=== PATIENT | female | born 1995 | race Caucasian/White ===

== ENCOUNTER 2016-05-09 12:02 | Emergency (ER) | payer BC, OTHER ==
[~2016-05-09] VITALS: Ht 170.2 cm; Wt 68.5 kg
[~2016-05-09 12:02] MED LIST: Z.0.BCPILL PO
[2016-05-09 12:37] VITALS: BP 137/87; PULSE 81; RESP 16; TEMP 98.8; O2SAT 97
[2016-05-09] MEDS ORDERED: HYDR-3133 PO ×2 (12:50→13:16)
[2016-05-09] MEDS ORDERED: Birth control PO (12:50)
--- NOTE | 2016-05-09 13:06 | PD ---
HPI Chief Complaint: Anxiety Time Seen by Provider: 12:54 Travel History International Travel<30 days: No Contact w/Intl Traveler<30days: No Traveled to known affect area: No History of Present Illness HPI The patient was seen and examined in the presence of the nurse. Complains of anxiety. This is a long-standing problem she has. Takes no medication for it. Denies feeling depressed or suicidal. Denies drug use. Symptom severity is moderate. PFSH Past Medical History Medical History: Denies Significant Hx Diminished Hearing: No Immunizations Current: Yes (UTD) Tetanus Vaccination: > 5 Years Influenza Vaccination: Yes ?: Not LMP: 2-3 months, normally irr., on BCP Past Surgical History Surgical History: No Previous Surgery Social History Alcohol Use: Yes (Occ.) Tobacco Use: Yes (Vapes) Substance Use: No Allergies-Medications (Allergen,Severity, Reaction): Coded Allergies: No Known Allergies (Verified , 05/09/16) Reported Meds & Prescriptions Reported Meds & Active Scripts Active Reported [ control] 1 Tab PO DAILY Hydroxyzine HCl 25 Mg Tab 25 Mg PO TID PRN Review of Systems General / Constitutional: No: Fever HENT: No: Headaches Cardiovascular: No: Chest Pain or Discomfort Physical Exam Narrative CARDIOVASCULAR: Regular rate and rhythm without murmur. Extremities showed no edema or varicosities. RESPIRATORY: Respiratory effort unlabored, no retractions or use of accessory muscles. Breath sounds are clear and symmetric. SKIN: Inspection shows no rash or ulcers. Palpation shows no induration or nodules. Data Data Last Documented VS Vital Signs Date Time Temp Pulse Resp B/P Pulse Ox O2 Delivery O2 Flow Rate FiO2 05/09/16 12:37 98.8 81 16 137/87 97 Orders Hydroxyzine Pamoate (Vistaril) (05/09/16 13:15) [facility] Medical Decision Making Medical Screen Exam Complete: Yes Emergency Medical Condition: Yes Medical Record Reviewed: Yes Differential Diagnosis Anxiety, depression, adjustment disorder Narrative Course I have reviewed the patient's electronic medical record. Patient is anxiety but is young healthy 20-year-old without physical complaint otherwise I gave her a dose of Vistaril and a prescription for same Primary care physician follow-up recommended Diagnosis Primary Impression: Anxiety attack Additional Instructions: The patient was advised to follow up with their physician and return if they worsen. The patient was warned about potential sedation for the medications they will receive on prescription. Med/Other Pt SpecificInfo: Prescription(s) given Disposition: 01 DISCHARGE HOME Condition: Stable Jose Enrique Tomas MD May 09, 2016 13:06
[2016-05-09] MEDS ORDERED: hydrOXYzine PAMOATE 25 MG CAP PO ONE (13:15)
== END 2016-05-09 13:20 | disposition home or self-care (01) ==
LOC: PHED 12:02
DX: F41.8 Other specified anxiety disorders (principal); Z72.0 Tobacco use
CPT/HCPCS: 99283; Q0177

== ENCOUNTER 2016-11-18 18:28 | Emergency (ER) | payer BC, OTHER ==
[~2016-11-18] VITALS: Ht 172.7 cm; Wt 62.0 kg
[~2016-11-18 18:28] MED LIST changes: +Birth control PO; +HYDR-3133 PO; -Z.0.BCPILL PO
[2016-11-18 18:57] VITALS: BP 123/69; PULSE 70; RESP 18; TEMP 98.9; O2SAT 100
[2016-11-18 19:50] LABS: AUTOMATED NEUTROPHIL # 9.8 TH/MM3 (1.8-7.7); BASOPHIL % 0.3 % (0.0-2.0); EOSINOPHIL # 0.2 TH/MM3 (0-0.4); EOSINOPHIL % 1.5 % (0.0-4.0); HEMATOCRIT 43.2 % (35.0-46.0); HEMO FLAGS DIFF FINAL; LYMPH % 18.2 % (9.0-44.0); LYMPHOCYTE # 2.4 TH/MM3 (1.0-4.8); MEAN CELL VOLUME 89.2 FL (80.0-100.0); MEAN CORPUSCULAR HGB CONC 32.5 % (32.0-36.0); MONO % 6.4 % (0.0-8.0); NEUT % 73.6 % (16.0-70.0); PLATELET COUNT 236 TH/MM3 (150-450); RED BLOOD COUNT 4.84 MIL/MM3 (4.00-5.30); RED CELL DISTRIBUTION WIDTH 13.1 % (11.6-17.2); WHITE BLOOD COUNT 13.3 TH/MM3 (4.0-11.0)
[2016-11-18 20:08] LABS: ALT (GPT) 25 U/L (10-53); ANION GAP 8 MEQ/L (5-15); AST (GOT) 14 U/L (15-37); BICARBONATE 24.6 MEQ/L (21.0-32.0); BLOOD UREA NITROGEN 11 MG/DL (7-18); CHLORIDE 106 MEQ/L (98-107); GLOMERULAR FILTRATION RATE 102 ML/MIN (>89); POTASSIUM 3.8 MEQ/L (3.5-5.1); SODIUM (NA) 139 MEQ/L (136-145)
[2016-11-18 20:11] LABS: ALKALINE PHOSPHATASE 79 U/L (45-117)
[2016-11-18 20:19] LABS: ALCOHOL LESS THAN 3 MG/DL (0-5)
--- NOTE | 2016-11-18 21:23 | PD ---
HPI Chief Complaint: Psychiatric Symptoms Time Seen by Provider: 20:13 Travel History International Travel<30 days: No Contact w/Intl Traveler<30days: No Traveled to known affect area: No History of Present Illness HPI 20-year-old female that presents to the ED for evaluation of psychiatric illness. Patient was Alex lino. She made suicidal statements to her boss at work. She states that she is given IV laid-off and asked what she may be statements. She has history of anxiety. She takes Xanax for this. She denies any other medical issues. She denies any cutting. Denies any actual plan at this time. States doing marijuana on occasion. PFSH Past Medical History Anxiety: Yes Depression: Yes Diminished Hearing: No Immunizations Current: Yes (UTD) ?: Not LMP: 10/16/16 Past Surgical History Surgical History: No Previous Surgery Social History Alcohol Use: Yes (Occ.) Tobacco Use: Yes (Vapes) Substance Use: Yes (e-cig) Allergies-Medications (Allergen,Severity, Reaction): Coded Allergies: No Known Allergies (Verified , 05/09/16) Reported Meds & Prescriptions Reported Meds & Active Scripts Active Hydroxyzine HCl 25 Mg Tab 25 Mg PO TID PRN Reported [ control] 1 Tab PO DAILY Review of Systems Except as stated in HPI: all other systems reviewed are Neg Physical Exam Narrative GENERAL: SKIN: Warm and dry. HEAD: Atraumatic. Normocephalic. EYES: Pupils equal and round. No scleral icterus. No injection or drainage. ENT: No nasal bleeding or discharge. Mucous membranes pink and moist. Tongue is midline. No uvula deviation. NECK: Trachea midline. No JVD. CARDIOVASCULAR: Regular rate and rhythm. No murmurs, S3, S4. RESPIRATORY: No accessory muscle use. Clear to auscultation. Breath sounds equal bilaterally. GASTROINTESTINAL: Abdomen soft, non-tender, nondistended. Hepatic and splenic margins not palpable. MUSCULOSKELETAL: Extremities without clubbing, cyanosis, or edema. No obvious deformities. Full range of motion of the upper and lower extremities bilaterally. 2+ pulses bilaterally. NEUROLOGICAL: Awake and alert. No obvious cranial nerve deficits. Motor grossly within normal limits. Five out of 5 muscle strength in the arms and legs. Normal speech. PSYCHIATRIC: Anxious mood and affect; insight and judgment normal. Data Data Last Documented VS Vital Signs Date Time Temp Pulse Resp B/P (MAP) Pulse Ox O2 Delivery O2 Flow Rate FiO2 11/18/16 18:57 98.9 70 18 123/69 (87) 100 Orders Orders Complete Blood Count With Diff (11/18/16 19:21) Comprehensive Metabolic Panel (11/18/16 19:21) Psych Screen (11/18/16 19:21) Drug Screen, Random Urine (11/18/16 19:21) Alcohol (Ethanol) (11/18/16 19:21) Labs Laboratory Tests Test 11/18/16 19:23 11/18/16 19:35 Urine Opiates Screen NEG Urine Barbiturates Screen NEG Urine Amphetamines Screen NEG Urine Benzodiazepines Screen POS Urine Cocaine Screen NEG Urine Cannabinoids Screen POS White Blood Count 13.3 TH/MM3 Red Blood Count 4.84 MIL/MM3 Hemoglobin 14.0 GM/DL Hematocrit 43.2 % Mean Corpuscular Volume 89.2 FL Mean Corpuscular Hemoglobin 29.0 PG Mean Corpuscular Hemoglobin Concent 32.5 % Red Cell Distribution Width 13.1 % Platelet Count 236 TH/MM3 Mean Platelet Volume 9.7 FL Neutrophils (%) (Auto) 73.6 % Lymphocytes (%) (Auto) 18.2 % Monocytes (%) (Auto) 6.4 % Eosinophils (%) (Auto) 1.5 % Basophils (%) (Auto) 0.3 % Neutrophils # (Auto) 9.8 TH/MM3 Lymphocytes # (Auto) 2.4 TH/MM3 Monocytes # (Auto) 0.8 TH/MM3 Eosinophils # (Auto) 0.2 TH/MM3 Basophils # (Auto) 0.0 TH/MM3 CBC Comment DIFF FINAL Differential Comment Blood Urea Nitrogen 11 MG/DL Creatinine 0.72 MG/DL Random Glucose 77 MG/DL Total Protein 7.9 GM/DL Albumin 4.3 GM/DL Calcium Level 8.5 MG/DL Alkaline Phosphatase 79 U/L Aspartate Amino Transf (AST/SGOT) 14 U/L Alanine Aminotransferase (ALT/SGPT) 25 U/L Total Bilirubin 1.0 MG/DL Sodium Level 139 MEQ/L Potassium Level 3.8 MEQ/L Chloride Level 106 MEQ/L Carbon Dioxide Level 24.6 MEQ/L Anion Gap 8 MEQ/L Estimat Glomerular Filtration Rate 102 ML/MIN Ethyl Alcohol Level LESS THAN 3 MG/DL MDM Medical Decision Making Medical Screen Exam Complete: Yes Emergency Medical Condition: Yes Medical Record Reviewed: Yes Interpretation(s) CBC & BMP Diagram 11/18/16 19:35 Total Protein 7.9, Albumin 4.3, Calcium Level 8.5, Alkaline Phosphatase 79, Aspartate Amino Transf (AST/SGOT) 14 L, Alanine Aminotransferase (ALT/SGPT) 25, Total Bilirubin 1.0 tox positive for benzos and cannabinoids Differential Diagnosis Depression versus suicidal ideation versus anxiety versus adjustment disorder versus mood disorder versus bipolar disorder versus schizophrenia versus paranoid disorder versus psychosis versus substance abuse versus alcohol abuse versus alcohol induced psychosis versus homicidality addition versus cutting versus personality disorder Narrative Course 20-year-old female that presents to the ED for emergent psychiatric illness. No sign of acute medical distress. Labs were drawn. Patient was medically clear. Okay to be seen by psych. Mental health screening was discussed with the patient. Diagnosis Primary Impression: Suicidal ideation Stas Anand Nov 18, 2016 21:23
[2016-11-18 23:15] VITALS: BP 116/63; PULSE 70; RESP 18
[2016-11-19 06:47] VITALS: BP 104/63; PULSE 74; RESP 18; O2SAT 98
[2016-11-19] MEDS ORDERED: IBUPROFEN 800 MG TAB PO ONE (08:30)
[2016-11-19 15:35] VITALS: BP 125/72
== END 2016-11-19 15:50 | disposition home or self-care (01) ==
LOC: NEPJ 18:28
DX: R45.851 Suicidal ideations (principal); F41.9 Anxiety disorder, unspecified; F32.9 Major depressive disorder, single episode, unspecified; F17.290 Nicotine dependence, other tobacco product, uncomplicated; Z79.899 Other long term (current) drug therapy
CPT/HCPCS: 80053; 80307; 85025; 99283

== ENCOUNTER 2017-03-14 17:05 | Emergency (ER) | payer BC, OTHER ==
[~2017-03-14] VITALS: Ht 172.7 cm; Wt 59.7 kg
[2017-03-14 17:14] VITALS: BP 118/57; PULSE 66; RESP 16; TEMP 98.5; O2SAT 99
[2017-03-14] MEDS ORDERED: TYLETAB34 PO (18:48)
[2017-03-14] MEDS ORDERED: SODIUM CHLOR 0.9% 1000 ML INJ 1,000 ML IV ONE (19:30)
[2017-03-14] MEDS ORDERED: SODIUM CHLORIDE 0.9% FLUSH 10 ML FLUSH IVF PRN (19:30)
[2017-03-14] MEDS ORDERED: ONDANSETRON HCL 4 MG/2 ML VIAL IV PUSH ONE (19:30)
--- NOTE | 2017-03-14 20:04 | PD ---
HPI Chief Complaint: GI Complaint Time Seen by Provider: 19:18 Travel History International Travel<30 days: No Contact w/Intl Traveler<30days: No Traveled to known affect area: No History of Present Illness HPI 21-year-old female presents to the emergency department for a week to week and a half of upper respiratory infection symptoms with sinus pressure drainage and yellow-green mucus production. Patient states she has subsequently developed a sore throat and has had chills without fever. She has had episodes of vomiting and diarrhea but denies any abdominal pain. Patient denies dysuria but has noted decreased urine output. Due to persistence of symptoms and exposure to respiratory illness by calling at work decided to come to the emergency room for evaluation. Patient did not have the flu vaccine for this season. Patient reports she is otherwise in good health except for history of anxiety and palpitations. Patient is currently not on any prescription or [id number] medications at this time. PFSH Past Medical History Anxiety: Yes Depression: Yes Diabetes: No Patient Takes Glucophage: No Diminished Hearing: No Immunizations Current: Yes (UTD) Tetanus Vaccination: Unknown ?: Not Past Surgical History Oral Surgery: Yes (WISDOM TEETH) Social History Alcohol Use: Yes (Occ.) Tobacco Use: Yes (Vapes) Substance Use: Yes (Snus, tobacco pouch) Allergies-Medications (Allergen,Severity, Reaction): Coded Allergies: No Known Allergies (Verified Adverse Reaction, Unknown, 03/14/17) Reported Meds & Prescriptions Reported Meds & Active Scripts Active Zofran Odt (Ondansetron Odt) 4 Mg Tab 4 Mg SL Q6HR PRN Amoxicillin 500 Mg Tab 500 Mg PO TID 10 Days Reported Tylenol-Codeine #3 (Acetaminophen-Codeine) 300-30 mg Tab 1 Tab PO Q8HR PRN Review of Systems Except as stated in HPI: all other systems reviewed are Neg Physical Exam Narrative GENERAL: Well-developed well-nourished female in no acute distress no respiratory distress SKIN: Warm and dry. HEAD: Normocephalic. EYES: No scleral icterus. No injection or drainage. ENT: Mucous membranes moist airway is patent posterior pharynx erythema without exudate of change or edema. NECK: Supple, trachea midline. No JVD or lymphadenopathy. Anterior cervical chain lymph nodes to palpation mildly tender CARDIOVASCULAR: Regular rate and rhythm without murmurs, gallops, or rubs. RESPIRATORY: Breath sounds equal bilaterally. No accessory muscle use. GASTROINTESTINAL: Abdomen soft, non-tender, nondistended. Abdomen is soft nontender no guarding or rebound. MUSCULOSKELETAL: No cyanosis, or edema. BACK: Nontender without obvious deformity. No CVA tenderness. Data Data Last Documented VS Vital Signs Date Time Temp Pulse Resp B/P (MAP) Pulse Ox O2 Delivery O2 Flow Rate FiO2 03/14/17 20:19 97 Room Air 03/14/17 17:14 98.5 66 16 118/57 (77) Orders Orders Complete Blood Count With Diff (03/14/17 19:18) Basic Metabolic Panel (Bmp) (03/14/17 19:18) Group A Rapid Strep Screen (03/14/17 19:18) Influenzae A/B Antigen (03/14/17 19:18) Iv Access Insert/Monitor (03/14/17 19:18) Oximetry (03/14/17 19:18) Sodium Chloride 0.9% Flush (Ns Flush) (03/14/17 19:30) Sodium Chlor 0.9% 1000 Ml Inj (Ns 1000 M (03/14/17 19:30) Ondansetron Inj (Zofran Inj) (03/14/17 19:30) Ed Urine Pregnancytest Poc (03/14/17 19:18) Strep Culture (Group A) (03/14/17 20:16) Ed Discharge Order (03/14/17 21:18) Labs Laboratory Tests Test 03/14/17 20:08 White Blood Count 9.6 TH/MM3 Red Blood Count 4.84 MIL/MM3 Hemoglobin 13.9 GM/DL Hematocrit 44.1 % Mean Corpuscular Volume 91.1 FL Mean Corpuscular Hemoglobin 28.7 PG Mean Corpuscular Hemoglobin Concent 31.5 % Red Cell Distribution Width 13.0 % Platelet Count 209 TH/MM3 Mean Platelet Volume 10.7 FL Neutrophils (%) (Auto) 62.8 % Lymphocytes (%) (Auto) 20.2 % Monocytes (%) (Auto) 8.3 % Eosinophils (%) (Auto) 6.8 % Basophils (%) (Auto) 1.9 % Neutrophils # (Auto) 6.0 TH/MM3 Lymphocytes # (Auto) 1.9 TH/MM3 Monocytes # (Auto) 0.8 TH/MM3 Eosinophils # (Auto) 0.7 TH/MM3 Basophils # (Auto) 0.2 TH/MM3 CBC Comment DIFF FINAL Differential Comment Blood Urea Nitrogen 8 MG/DL Creatinine 0.80 MG/DL Random Glucose 76 MG/DL Calcium Level 9.3 MG/DL Sodium Level 141 MEQ/L Potassium Level 3.7 MEQ/L Chloride Level 105 MEQ/L Carbon Dioxide Level 28.7 MEQ/L Anion Gap 7 MEQ/L Estimat Glomerular Filtration Rate 90 ML/MIN MDM Medical Decision Making Medical Screen Exam Complete: Yes Emergency Medical Condition: Yes Medical Record Reviewed: Yes Interpretation(s) POC hCG: Negative CBC & BMP Diagram 03/14/17 20:08 Calcium Level 9.3 Vital Signs Date Time Temp Pulse Resp B/P (MAP) Pulse Ox O2 Delivery O2 Flow Rate FiO2 03/14/17 20:19 97 Room Air 03/14/17 17:14 98.5 66 16 118/57 (77) 99 Influenza antigen: Negative Rapid strep antigen: Negative Differential Diagnosis Sinusitis, viral syndrome, pharyngitis, bronchitis, pneumonia, , UTI, gastroenteritis Narrative Course Patient presents with complaint of vomiting and diarrhea with decreased urine output dehydration sore throat sinus pressure drainage Specimens collected and sent for resulting patient administered 1 L normal saline and Zofran 4 mg IV for complaint of nausea Lab values 100 grossly normal range [id number] hCG negative influenza antigen negative and rapid strep negative patient is clinically improved and stable for outpatient management [place] patient given prescription for amoxicillin for sinusitis and Zofran 4 nausea vomiting and gastroenteritis symptoms Diagnosis Primary Impression: Acute sinusitis Additional Impression: Gastroenteritis Referrals: Primary Care Physician call for appointment Patient Instructions: General Instructions Departure Forms: Tests/Procedures, Work Release Special Instructions: No work times one day Additional Instructions: Increase fluid hydration Take medications as prescribed No work times one day Take acetaminophen/Tylenol every 4 hours as needed for fever 100.4 days Fahrenheit or greater Take ibuprofen/Advil/Motrin every 6-8 hours as needed for fever 100.4F or greater or for pain associated inflammation Return to the emergency department for any concerns or change in condition Med/Other Pt SpecificInfo: Prescription(s) given Scripts Ondansetron Odt (Zofran Odt) 4 Mg Tab 4 MG SL Q6HR Y for Nausea/Vomiting, #10 TAB 0 Refills Prov: Jannie Huynh MD 03/14/17 Amoxicillin (Amoxicillin) 500 Mg Tab 500 MG PO TID for Infection for 10 Days, TAB 0 Refills Prov: Jannie Huynh MD 03/14/17 Disposition: 01 DISCHARGE HOME Condition: Stable Jannie Huynh MD Mar 14, 2017 20:04
[2017-03-14 20:19] VITALS: O2SAT 97
[2017-03-14 20:26] LABS: BASOPHIL # 0.2 TH/MM3 (0-0.2); BASOPHIL % 1.9 % (0.0-2.0); EOSINOPHIL # 0.7 TH/MM3 (0-0.4); EOSINOPHIL % 6.8 % (0.0-4.0); HEMATOCRIT 44.1 % (35.0-46.0); HEMOGLOBIN 13.9 GM/DL (11.6-15.3); LYMPH % 20.2 % (9.0-44.0); LYMPHOCYTE # 1.9 TH/MM3 (1.0-4.8); MEAN CELL VOLUME 91.1 FL (80.0-100.0); MEAN CORPUSCULAR HEMOGLOBIN 28.7 PG (27.0-34.0); MEAN CORPUSCULAR HGB CONC 31.5 % (32.0-36.0); MEAN PLATELET VOLUME 10.7 FL (7.0-11.0); MONO % 8.3 % (0.0-8.0); MONOCYTE # 0.8 TH/MM3 (0-0.9); NEUT % 62.8 % (16.0-70.0); PLATELET COUNT 209 TH/MM3 (150-450); RED BLOOD COUNT 4.84 MIL/MM3 (4.00-5.30); WHITE BLOOD COUNT 9.6 TH/MM3 (4.0-11.0)
[2017-03-14 20:51] LABS: CALCIUM 9.3 MG/DL (8.5-10.1)
[2017-03-14 20:52] LABS: BICARBONATE 28.7 MEQ/L (21.0-32.0)
[2017-03-14 20:55] LABS: CREATININE 0.8 MG/DL (0.50-1.00)
[2017-03-14] MEDS ORDERED: ZOFR4TAB3 SL (21:20)
[2017-03-14] MEDS ORDERED: AMOX500T PO (21:20)
[2017-03-14 21:57] VITALS: BP 103/60
== END 2017-03-14 21:59 | disposition home or self-care (01) ==
LOC: PHED 17:05
DX: J01.90 Acute sinusitis, unspecified (principal); K52.9 Noninfective gastroenteritis and colitis, unspecified; Z72.0 Tobacco use
CPT/HCPCS: 80048; 84703; 85025; 87081; 87804; 87880; 96361; 96374; 99284; J2405; J7030

== ENCOUNTER 2017-06-28 13:23 | Emergency (ER) | payer BC ==
[~2017-06-28] VITALS: Ht 172.7 cm; Wt 120.0 kg
[~2017-06-28 13:23] MED LIST changes: +AMOX500T PO; -Birth control PO; -HYDR-3133 PO; +TYLETAB34 PO; +ZOFR4TAB3 SL
[2017-06-28 13:32] VITALS: BP 133/71; PULSE 71; RESP 16; TEMP 98.5; O2SAT 98
--- NOTE | 2017-06-28 13:40 | PD ---
HPI Chief Complaint: Syncope/Near-Syncope Time Seen by Provider: 13:40 Travel History International Travel<30 days: No Contact w/Intl Traveler<30days: No Traveled to known affect area: No History of Present Illness HPI 21-year-old female came to the emergency room with history of a syncopal episode today at work. 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 She slid against the wall and the coworkers helped her lay down. Patient says that she has been sick for past 4 months. She has been in the emergency room as well as to see her primary care doctor. She has been having vomiting and unable to eat or drink much. She has lost 40 pounds since last February. She has had multiple workup in the emergency room as well as by her primary care. She has not been referred to any GI specialist. Her primary care has diagnosed her with asthma. Today she had no respiratory issues and vital signs were stable. [facility] Past Medical History Narrative Medical List of her past medical, surgical, social and family history is reviewed from the nursing note. Anxiety: Yes Depression: Yes Diabetes: No Diminished Hearing: No Immunizations Current: Yes (UTD) Past Surgical History Oral Surgery: Yes (WISDOM TEETH) Social History Alcohol Use: Yes (Occ.) Tobacco Use: Yes (Vapes) Substance Use: Yes (Snus, tobacco pouch) Allergies-Medications (Allergen,Severity, Reaction): Coded Allergies: No Known Allergies (Verified Adverse Reaction, Unknown, 06/28/17) Comments No known drug allergies Reported Meds & Prescriptions Reported Meds & Active Scripts Active Zofran Odt (Ondansetron Odt) 4 Mg Tab 4 Mg SL Q6HR PRN Reported Ventolin Hfa 18 GM Inh (Albuterol Sulfate) 90 Mcg/Act Aer 2 Puff INH Q4H PRN Proair Hfa 8.5 GM Inh (Albuterol Sulfate) 90 Mcg/Act Aer 2 Puff INH Q4-6H PRN 108 mcg/actuation Narrative Medication List of her home medications reviewed from the nursing note. Review of Systems Except as stated in HPI: all other systems reviewed are Neg General / Constitutional: Positive: Weight Loss Gastrointestinal: Positive: Nausea, Vomiting Neurologic: Positive: Syncope Physical Exam Narrative GENERAL: Awake, alert, mildest SKIN: Focused skin assessment warm/dry. Pale. Bruising on her bilateral lower extremity HEAD: Atraumatic. Normocephalic. EYES: Pupils equal and round. No scleral icterus. No injection or drainage. ENT: No nasal bleeding or discharge. Mucous membranes pink and moist. NECK: Trachea midline. No JVD. CARDIOVASCULAR: Regular rate and rhythm. No murmur appreciated. RESPIRATORY: No accessory muscle use. Clear to auscultation. Breath sounds equal bilaterally. GASTROINTESTINAL: Abdomen soft, non-tender, nondistended. Hepatic and splenic margins not palpable. MUSCULOSKELETAL: No obvious deformities. No clubbing. No cyanosis. No edema. NEUROLOGICAL: Awake and alert. No obvious cranial nerve deficits. Motor grossly within normal limits. Normal speech. PSYCHIATRIC: Appropriate mood and affect; insight and judgment normal. Data Data Last Documented VS Vital Signs Date Time Temp Pulse Resp B/P (MAP) Pulse Ox O2 Delivery O2 Flow Rate FiO2 06/28/17 17:27 06/28/17 15:44 53 20 75 20 69 20 06/28/17 13:51 98 Room Air 06/28/17 13:32 98.5 Orders Orders Complete Blood Count With Diff (06/28/17 14:13) Comprehensive Metabolic Panel (06/28/17 14:13) Urinalysis - C+S If Indicated (06/28/17 14:13) Us Abdomen Gallbladder (06/28/17 ) Potassium Chloride (Kcl) (06/28/17 15:30) Orthostatic Vital Signs (06/28/17 15:26) Ed Discharge Order (06/28/17 17:15) Mandatory Outpatient Referral (06/28/17 17:26) Electrocardiogram (06/28/17 17:11) Labs Laboratory Tests Test 06/28/17 14:50 White Blood Count 9.2 TH/MM3 Red Blood Count 4.48 MIL/MM3 Hemoglobin 13.5 GM/DL Hematocrit 40.2 % Mean Corpuscular Volume 89.7 FL Mean Corpuscular Hemoglobin 30.1 PG Mean Corpuscular Hemoglobin Concent 33.5 % Red Cell Distribution Width 12.1 % Platelet Count 234 TH/MM3 Mean Platelet Volume 10.4 FL Neutrophils (%) (Auto) 77.0 % Lymphocytes (%) (Auto) 16.8 % Monocytes (%) (Auto) 3.6 % Eosinophils (%) (Auto) 0.3 % Basophils (%) (Auto) 2.3 % Neutrophils # (Auto) 7.2 TH/MM3 Lymphocytes # (Auto) 1.5 TH/MM3 Monocytes # (Auto) 0.3 TH/MM3 Eosinophils # (Auto) 0.0 TH/MM3 Basophils # (Auto) 0.2 TH/MM3 CBC Comment DIFF FINAL Differential Comment Urine Collection Type CLEAN CATCH Urine Color YELLOW Urine Turbidity CLOUDY Urine pH 6.5 Urine Specific [place] 1.015 Urine Protein NEG mg/dL Urine Glucose (UA) NEG mg/dL Urine Ketones NEG mg/dL Urine Occult Blood NEG Urine Nitrite NEG Urine Bilirubin NEG Urine Urobilinogen 0.2 MG/DL Urine Leukocyte Esterase NEG Urine WBC 0-2 /hpf Urine Squamous Epithelial Cells 0-5 /hpf Urine Amorphous Sediment MOD Microscopic Urinalysis Comment CULT NOT INDICATED Urine Collection Time 14:50 Blood Urea Nitrogen 10 MG/DL Creatinine 0.88 MG/DL Random Glucose 84 MG/DL Total Protein 7.8 GM/DL Albumin 4.2 GM/DL Calcium Level 9.8 MG/DL Alkaline Phosphatase 63 U/L Aspartate Amino Transf (AST/SGOT) 11 U/L Alanine Aminotransferase (ALT/SGPT) 17 U/L Total Bilirubin 1.3 MG/DL Sodium Level 141 MEQ/L Potassium Level 3.3 MEQ/L Chloride Level 106 MEQ/L Carbon Dioxide Level 26.5 MEQ/L Anion Gap 9 MEQ/L Estimat Glomerular Filtration Rate 80 ML/MIN MDM Medical Decision Making Medical Screen Exam Complete: Yes Emergency Medical Condition: Yes Medical Record Reviewed: Yes Interpretation(s) Twelve-lead EKG was reviewed by me. Normal sinus rhythm, normal axis, bradycardia, nonspecific ST-T wave changes. Heart rate of 54 bpm. Differential Diagnosis Orthostatic hypotension, electrolyte abnormality, dehydration Narrative Course 5:06 PM blood test results are back and potassium is slightly low. I have ordered p.o. replacement. CMP showed slightly elevated bilirubin. Based on that ultrasound of the gallbladder was ordered. It shows a large stone in the gallbladder. Orthostatic vital signs were positive with heart rate going up when patient stood up by 20 points. The orthostatic vital signs are being repeated at this point. If they continue to be positive patient will get IV fluid bolus. Otherwise she will be discharged home. 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 As well as her primary care physician. 5:09 PM repeat orthostatic vital signs were negative. Procedures EKG Prior to Arrival: No Diagnosis Primary Impression: Vasovagal syncope Additional Impressions: Cholelithiasis Qualified Codes: K80.20 - Calculus of gallbladder without cholecystitis without obstruction Vomiting Qualified Codes: R11.2 - Nausea with vomiting, unspecified Referrals: García Mary MD 1 week Additional Instructions: Please follow-up with the surgeon who is name and number been given to you on this discharge instruction for the gallstone. Also your primary care physician should refer you to a GI specialist for your vomiting issues. Return to the emergency room if the condition worsens or any other new concerns. Med/Other Pt SpecificInfo: Prescription(s) given Scripts Ondansetron Odt (Zofran Odt) 4 Mg Tab 4 MG SL Q6HR Y for Nausea/Vomiting, #10 TAB 0 Refills Prov: Vik Arriaga MD 06/28/17 Disposition: 01 DISCHARGE HOME Condition: Stable Vik Arriaga MD Jun 28, 2017 13:40
[2017-06-28] MEDS ORDERED: VENTAER INH (13:58)
[2017-06-28] MEDS ORDERED: ALBUAER3 INH (13:58)
[2017-06-28 14:57] LABS: BILIRUBIN, URINE NEG (NEG); BLOOD, URINE NEG (NEG); GLUCOSE,URINE NEG (NEG); KETONE, URINE NEG (NEG); NITRITE,URINE NEG (NEG); PH, URINE 6.5 (5.0-8.5); URINE COLOR YELLOW (YELLW/STRAW); URINE LEUKOCYTE ESTERASE NEG (NEG)
[2017-06-28 14:59] LABS: AUTOMATED NEUTROPHIL # 7.2 TH/MM3 (1.8-7.7); BASOPHIL # 0.2 TH/MM3 (0-0.2); BASOPHIL % 2.3 % (0.0-2.0); EOSINOPHIL % 0.3 % (0.0-4.0); HEMATOCRIT 40.2 % (35.0-46.0); HEMOGLOBIN 13.5 GM/DL (11.6-15.3); LYMPH % 16.8 % (9.0-44.0); LYMPHOCYTE # 1.5 TH/MM3 (1.0-4.8); MEAN CELL VOLUME 89.7 FL (80.0-100.0); MEAN CORPUSCULAR HEMOGLOBIN 30.1 PG (27.0-34.0); MEAN CORPUSCULAR HGB CONC 33.5 % (32.0-36.0); MEAN PLATELET VOLUME 10.4 FL (7.0-11.0); MONO % 3.6 % (0.0-8.0); MONOCYTE # 0.3 TH/MM3 (0-0.9); PLATELET COUNT 234 TH/MM3 (150-450); RED BLOOD COUNT 4.48 MIL/MM3 (4.00-5.30); RED CELL DISTRIBUTION WIDTH 12.1 % (11.6-17.2); WHITE BLOOD COUNT 9.2 TH/MM3 (4.0-11.0)
[2017-06-28 15:01] LABS: AMORPHOUS SEDIMENT, URINE MOD; SQUAMOUS EPITHELIAL CELL URINE 0-5 /hpf (0-5); WBC, URINE 0-2 /hpf (0-5)
[2017-06-28 15:07] LABS: CHLORIDE 106 MEQ/L (98-107); SODIUM (NA) 141 MEQ/L (136-145)
[2017-06-28 15:10] LABS: CALCIUM 9.8 MG/DL (8.5-10.1)
[2017-06-28 15:11] LABS: ALBUMIN 4.2 GM/DL (3.4-5.0); BICARBONATE 26.5 MEQ/L (21.0-32.0); BLOOD UREA NITROGEN 10 MG/DL (7-18); GLUCOSE,RANDOM 84 MG/DL (74-106)
[2017-06-28 15:14] LABS: ALT (GPT) 17 U/L (10-53); AST (GOT) 11 U/L (15-37); CREATININE 0.88 MG/DL (0.50-1.00); GLOMERULAR FILTRATION RATE 80 ML/MIN (>89)
[2017-06-28 15:16] LABS: TOTAL BILIRUBIN ADULT 1.3 MG/DL (0.2-1.0); TOTAL PROTEIN 7.8 GM/DL (6.4-8.2)
[2017-06-28 15:17] LABS: ALKALINE PHOSPHATASE 63 U/L (45-117)
[2017-06-28] MEDS ORDERED: POTASSIUM CHLORIDE 20 MEQ CONTROLLED RELEASE TAB PO ONE (15:30)
[2017-06-28 15:44] VITALS: BP_SYST 115; BP_SYST 126; BP_SYST 131; BP_DIAS 66; BP_DIAS 70; BP_DIAS 73; RESP 20
--- NOTE | 2017-06-28 17:13 | RADRPT ---
EXAM DATE/TIME: 06/28/2017 16:22 [place] COMPARISON: No previous studies available for comparison. INDICATIONS : Nausea/vomiting. MEDICAL HISTORY : Nausea/vomiting. SURGICAL HISTORY : Oral sugery. ENCOUNTER: Initial ACUITY: 4-6 months PAIN SCORE: 0/10 LOCATION: Right upper quadrant MEASUREMENTS: LIVER: 17.4 cm length COMMON DUCT: 2 mm RIGHT KIDNEY: 10.6 x 4.6 x 4.0 cm FINDINGS: LIVER: Normal echotexture without focal lesion or ductal dilatation. COMMON DUCT: No intraluminal mass or stone visualized. GALLBLADDER: The examination demonstrates a 1.3 x 0.90 1.3 cm stone in the fundus of the gallbladder. There is no significant gallbladder wall thickening. No pericholecystic fluid is identified. PANCREAS: The visualized portions are within normal limits. RIGHT KIDNEY: No evidence of hydronephrosis, stone, or mass. CONCLUSION: 1. Large gallstone in the gallbladder. Jose Anderson MD on June 28, 2017 at 17:00 Board Certified Radiologist. This report was verified electronically.
[2017-06-28] MEDS ORDERED: ZOFR4TAB3 SL (17:17)
--- NOTE | 2017-06-30 09:53 | EKG ---
Date Performed: 06/28/2017 Time Performed: 17:11:33 PTAGE: 21 years EKG: SINUS BRADYCARDIA WITH SINUS ARRHYTHMIA BORDERLINE ECG PREVIOUS TRACING : 11/20/2013 13.58 Since the prior tracing, there has been a slowing of the si nus rate, but no other significant serial change. DOCTOR: Bre Mohr Interpretating Date/Time 06/30/2017 09:52:29
== END 2017-06-28 17:32 | disposition home or self-care (01) ==
LOC: PHED 13:23
DX: R55 Syncope and collapse (principal); K80.20 Calculus of gallbladder without cholecystitis without obstruction; R00.1 Bradycardia, unspecified; I49.8 Other specified cardiac arrhythmias
CPT/HCPCS: 76705; 80053; 81001; 85025; 93005; 99284